=== PATIENT | female | born 1935 | race Caucasian/White ===

== ENCOUNTER 2017-03-04 17:28 | Inpatient (IN) | payer MEDICARE ==
[~2017-03-04] VITALS: Ht 160 cm; Wt 51.3 kg
[2017-03-04 17:48] LABS: HEMATOCRIT 39.5 % (34.6-47.8); HEMOGLOBIN 12.9 g/dL (11.7-16.4)
[2017-03-04] MEDS ORDERED: SODIUM CHLORIDE FLUSH 10ML SYR IVF ONE (18:00)
[2017-03-04 18:07] LABS: DIFF TOTAL CELLS COUNTED 100 CELL DIFF
[2017-03-04 18:09] LABS: VERIFY COUNTS? YES
[2017-03-04 18:11] LABS: ASPARTATE AMINO TRANSFERASE 15 U/L (15-37); BLOOD UREA NITROGEN 28 mg/dL (7-18)
[2017-03-04 18:17] LABS: IS PT STATUS REG ER OR PRE ER? YES
[2017-03-04 18:18] LABS: ACETAMINOPHEN < 2 mcg/mL (10-30)
[2017-03-04 19:05] VITALS: BP 121/47
[2017-03-04] MEDS ORDERED: morphine SULFATE ORAL.CONC 20 MG/ML BC PRN (19:30)
[2017-03-04] MEDS ORDERED: PROCHLORPERAZINE 5 MG/ML, 2ML IVPush PRN (19:30)
[2017-03-04] MEDS ORDERED: morphine SULFATE 10 MG/ML, 1ML IVPush PRN (19:30)
[2017-03-04] MEDS ORDERED: ATROPINE OPHTH SOLN 1%, 5ML BC PRN (19:30)
[2017-03-04] MEDS ORDERED: SCOPOLAMINE PATCH, 1MG PATCH.TD72 TD SCH (19:30)
[2017-03-04] MEDS ORDERED: LORazepam 2 MG/ML, 1ML IVPush PRN (19:30)
[2017-03-04] MEDS ORDERED: SODIUM CHLORIDE FLUSH 10ML SYR IVF SCH (21:00)
[2017-03-04] MEDS ORDERED: morphine SULFATE 125 MG in SODIUM CHLORIDE 0.9% 237.5 ML IV PRN (21:30)
== END 2017-03-05 06:27 | disposition expired | DRG 871 ==
LOC: ED 19:22 → EDIP 20:20 → 3NW 20:21
PROVIDERS: ADMIT Internal Medicine; ATTEND Internal Medicine
DX: A41.9 Sepsis, unspecified organism (principal); G93.40 Encephalopathy, unspecified; G93.5 Compression of brain; I61.1 Nontraumatic intracerebral hemorrhage in hemisphere, cortical; I61.5 Nontraumatic intracerebral hemorrhage, intraventricular; J69.0 Pneumonitis due to inhalation of food and vomit; E44.1 Mild protein-calorie malnutrition; E87.1 Hypo-osmolality and hyponatremia; Z51.5 Encounter for palliative care; D75.89 Other specified diseases of blood and blood-forming organs; F17.210 Nicotine dependence, cigarettes, uncomplicated; Z66 Do not resuscitate; Z68.20 Body mass index [BMI] 20.0-20.9, adult
CPT/HCPCS: 36415; 70450; 71010; 80053; 80307; 80329; 82140; 84484; 85025; 93005; G0479; G0480; J2270; J7050